=== PATIENT | male | born 1950 | race Caucasian/White ===

== ENCOUNTER 2017-02-22 18:04 | Emergency (ER) | payer OTHER ==
[~2017-02-22] VITALS: Ht 177.8 cm; Wt 96.8 kg
[~2017-02-22 18:04] MED LIST: AMLODIPINE-BEN1 EAC3 PO; ASPIRIN81 M1 PO; CLEOCIN300 MG PO; CLONAZEPAM1 MG PO; LANSOPRAZOLE30 MG PO; LIPITOR20 MG PO; ROPINIROLE HCL0.5 MG PO; SERTRALINE HCL50 MG PO
[2017-02-22] MEDS ORDERED: NAPROSYN500 MG PO (19:37)
[2017-02-22 19:58] VITALS: BP 155/80
== END 2017-02-22 19:59 | disposition home or self-care (01) ==
LOC: EME 18:04
DX: S93.601A Unspecified sprain of right foot, initial encounter (principal); X50.0XXA Overexertion from strenuous movement or load, initial encounter; Y93.53 Activity, golf; Y92.39 Other specified sports and athletic area as the place of occurrence of the external cause; E78.5 Hyperlipidemia, unspecified; I10 Essential (primary) hypertension; F17.200 Nicotine dependence, unspecified, uncomplicated; Z79.82 Long term (current) use of aspirin
CPT/HCPCS: 73630; 99281; 99283